=== PATIENT | male | born 1985 | race Caucasian/White ===

== ENCOUNTER → 2018-03-13 | Outpatient (CLI) | payer OTHER ==
--- NOTE | 2018-03-13 21:45 | RADIOLOGY REPORT (SQ) ---
EXAM DESCRIPTION: MRI LUMBAR SPINE WITHOUT COMPLETED DATE/TIME: 03/13/2018 5:29 pm REASON FOR STUDY: [id number] M54.5 LOW BACK PAIN COMPARISON: None. TECHNIQUE: Sagittal and Axial imaging includes T1, T2, STIR and gradient echo sequences. Coronal T2/ HASTE imaging. LIMITATIONS: None. FINDINGS: VISUALIZED UPPER ABDOMEN: Limited evaluation. No acute or suspicious findings suggested. SEGMENTATION: No transitional anatomy. The lowest well-developed disc space is labeled L5-S1. ALIGNMENT: Anatomic. VERTEBRAE: Intact. BONE MARROW: Normal. No marrow replacement or reactive changes. DISC SIGNAL: Decreased signal intensity at L4-5. Decreased height of the L4-5 disc space. POSTERIOR ELEMENTS: Generally intact. No pars defect evident. HARDWARE: None in the spine. CORD AND CONUS: Normal in size and signal intensity. Conus at the L1 level. SOFT TISSUES: No aortic aneurysm seen. No bulky retroperitoneal adenopathy or mass. No paraspinal mas s or fluid. L1-L2: No significant spinal stenosis or exit foraminal stenosis. L2-L3: No significant spinal stenosis or exit foraminal stenosis. L3-L4: No significant spinal stenosis or exit foraminal stenosis. L4-L5: No significant spinal stenosis or exit foraminal stenosis. L5-S1: No significant spinal stenosis or exit foraminal stenosis. LOWER THORACIC: Incompletely imaged. No stenosis seen. SACRUM: Visualized upper sacrum intact. OTHER: No other significant findings. IMPRESSION: NORMAL MRI LUMBAR SPINE. TECHNICAL DOCUMENTATION: JOB ID: [id number] [employer]- All Rights Reserved Reading location - IP/workstation name: [email or web address]
== END ==
LOC: RAD 16:20
PROVIDERS: ATTEND Orthopaedic Surgery
DX: M54.5 Low back pain (principal)
CPT/HCPCS: 72148

== ENCOUNTER 2019-12-02 07:22 | Day surgery (SDC) | payer OTHER ==
[2019-12-01 09:35] LABS: HEMATOCRIT 42.3 % (37.9-51.0); HEMOGLOBIN 14.8 g/dL (13.5-17.0); MEAN CORPUSCULAR HEMOGLOBIN 31.4 pg (27.0-33.4); MEAN CORPUSCULAR VOLUME 90 fl (80-97); PLATELET COUNT 279 10^3/uL (150-450); RED BLOOD COUNT 4.71 10^6/uL (4.35-5.55); RED CELL DISTRIBUTION WIDTH 13.3 % (11.5-14.0); WHITE BLOOD COUNT 6.4 10^3/uL (4.0-10.5)
[~2019-12-02 07:22] MED LIST: ACETAMINOPHEN 325 MG TABLET PO PRN; CEFAZOLIN 1 GM/D5W RTU 1 GM/50 ML RTUPB IV ONE; CEFAZOLIN 1 GM/D5W RTU 1 GM/50 ML RTUPB IV PRN; DEXAMETHASONE SOD PHOSPHATE INJ 4 MG/1 ML VIAL ONE; FENTANYL CITRATE INJ/PF 100 MCG/2 ML AMPUL ONE; LACTATED RINGERS 1000 ML IV PRN; LIDOCAINE 0.5% INJ-PF (5 MG/ML) 50 ML SDV SUBCUT PRN; MIDAZOLAM 2 MG/2 ML INJ ONE; ONDANSETRON HCL INJ/PF 4 MG/2 ML SDV ONE; PROPOFOL INJ 200 MG/20 ML VIAL IV ONE; SUGAMMADEX SODIUM 200 MG/2 ML SDV IV ONE
[2019-12-02] MEDS ORDERED: BUPIVACAINE HCL 0.5%-EPI 1:200000 INJ/PF 30 ML VIAL ONE (12:47)
[2019-12-02] MEDS ORDERED: DIPHENHYDRAMINE HCL 50 MG/ML VIAL IV PRN (13:34)
[2019-12-02] MEDS ORDERED: ONDANSETRON HCL INJ/PF 4 MG/2 ML SDV IV PRN (13:34)
[2019-12-02] MEDS ORDERED: MEPERIDINE HCL/PF INJ 25 MG/1 ML DISP.SYRIN IV PRN (13:34)
[2019-12-02] MEDS ORDERED: FENTANYL CITRATE INJ/PF 100 MCG/2 ML AMPUL IV PRN ×3 (13:34)
[2019-12-02] MEDS ORDERED: MORPHINE SULFATE 10 MG/ML INJ IV PRN (13:34)
[2019-12-02] MEDS ORDERED: PROMETHAZINE HCL INJ 25 MG/1 ML VIAL IV PRN ×2 (13:34)
[2019-12-02] MEDS ORDERED: BUPIVACAINE INJ/PF LIPOSOME/PF 266 MG/20 ML SDV ONE (13:46)
[2019-12-02] MEDS ORDERED: SUCCINYLCHOLINE CHLORIDE INJ 200 MG/10 ML VIAL ONE (13:56)
[2019-12-02] MEDS ORDERED: ROCURONIUM BROMIDE INJ 50 MG/5 ML VIAL IV ONE (13:56)
[2019-12-02] MEDS ORDERED: KETOROLAC TROMETHAMINE 60 MG/2 ML SDV ONE (13:56)
--- NOTE | 2019-12-02 14:51 | Operative Report ---
Nonrecallable Operative Report DATE OF SURGERY: 12/02/19 PREOPERATIVE DIAGNOSIS: Right inguinal hernia POSTOPERATIVE DIAGNOSIS: Bilateral inguinal hernias OPERATION: Laparoscopic repair of bilateral inguinal hernias SURGEON: GUMARO LORENZO ANESTHESIA: GA TISSUE REMOVED OR ALTERED: None COMPLICATIONS: None INTRAOPERATIVE FINDINGS: 5 cc PROCEDURE: Patient was brought the operating awake alert in stable condition placed in the operative supine position induced under general anesthesia intubated. A Hahn catheter was placed. After appropriate timeout site verification the procedure commenced. A infraumbilical curvilinear incision was made with a 15 blade dissection was carried down through subtenons tissue with Bovie cautery the fascia the anterior rectus sheath was identified it was opened transversely to identify the muscle and then the posterior sheath we then used the Spacemaker balloon and placed on top of the posterior sheath and manipulated down to the pubic symphysis it was then insufflated under direct vision. The Spacemaker balloon was then removed. A working port was then placed in through that incision. We then insufflated the retroperitoneum. There is good visualization of the pubic structures. 2 5 mm ports were placed in the midline inferior to that umbilical incision. Attention was then turned to the right side. We mobilized the peritoneum along the transversalis fascia away to identify the cord structures there appeared to be a direct inguinal hernia on the right side as we mobilized of lipoma out of the hernia sac. The cord structures were skeletonized the peritoneum was mobilized proximally. We then used a piece of polypropylene mesh 3 cm wide by 6 cm long with a slit down the side placed into the retroperitoneum tacked it posteriorly to Royal's ligament anteriorly to the rectus fascia laterally transversalis fascia making sure we did not injure the lateral femoral cutaneous nerves. This was done with the absorb attack. The cord was then wrapped to allow for complete closure of the internal ring. Once this was completed we turned attention to the left side similarly there was a lipoma in the internal ring. This was mobilized out we then mobilized the cord structures skeletonized them and noted that there was a fairly large defect in the internal ring after the lipoma was removed. For that reason we fashioned a second piece of mesh 6 cm long by 3 cm wide with a slit down the side placed into the retroperitoneum fixed posteriorly to the Royal's ligament anterior to the rectus fascia laterally to the transversalis fascia again being careful not to injure the lateral femoral cutaneous nerves. This completely encircled the cord structures and covered the hassleback triangle. Once this was accomplished the pneumoperitoneum was reduced the ports were removed the fascial defect at the umbilical port site was closed with 0 Vicryl and 3 skin changes were closed with intracuticular 4-0 Biosyn Steri-Strips completed the procedure estimated blood loss was less than 5 cc sponge needle counts were correct x2 the patient was awakened in the operative room extubated transferred recovery in stable condition no complications.
[2019-12-02] MEDS ORDERED: OXYCODONE-ACETAMINOPHEN 5-325 MG TABLET PO PRN (14:59)
--- NOTE | 2019-12-02 14:59 | Discharge Summary ---
Discharge Summary (SDC) - Discharge Final Diagnosis: Bilateral inguinal hernia Date of Surgery: 12/02/19 Discharge Date: 12/02/19 Condition: Good Prescriptions: Oxycodone HCl/Acetaminophen [Percocet 7.5-325 mg Tablet] 1 each PO Q6HP PRN #20 tablet PRN Reason: Referrals: GASTON VELASQUEZ MD [Primary Care Provider] - Discharge Activity: No Lifting Over 10 Pounds Report the Following to Your Physician Immediately: Increase in Pain, Fever over 101 Degrees, Unusual Bleeding - Needs a follow-up appointment with me in 10 to 14 days
[2019-12-02] MEDS ORDERED: OXYCODONE-ACETAMINOPHEN 5-325 MG TABLET ONE (15:28)
[2019-12-02 17:39] VITALS: BP 128/87
== END 2019-12-02 17:15 | disposition home or self-care (01) ==
LOC: OROUT 07:22
PROVIDERS: ATTEND Surgery
DX: K40.90 Unilateral inguinal hernia, without obstruction or gangrene, not specified as recurrent (principal); K44.9 Diaphragmatic hernia without obstruction or gangrene; Z87.891 Personal history of nicotine dependence; Z79.899 Other long term (current) drug therapy
CPT/HCPCS: 36415; 85027; 49650; J2250; J0690; J3490 ×2; J1100; J1885; J3010; J0330; J2405; J2704; C9290